=== PATIENT | female | born 1990 ===

== ENCOUNTER 2023-11-18 06:47 | Outpatient (REF) | payer OTHER, SELFPAY ==
--- NOTE | ~2023-11-18 | US_ITS ---
EXAMINATION: US SOFT TISSUE HEAD/NECK CLINICAL INFORMATION: Hypothyroidism. COMPARISON: None available. TECHNIQUE: Linear transducer grayscale and color Doppler examination of the thyroid bed and surrounding soft tissue. FINDINGS: Status post total thyroidectomy. No residual soft tissue in the thyroidectomy bed. No cervical lymphadenopathy. US/US thyroid IMPRESSION: Status post total thyroidectomy. No residual soft tissue in the thyroidectomy bed. No cervical lymphadenopathy. Electronically signed by: Orquidea Benz MD 11/27/2023 09:53 PM EDT
== END 2023-11-18 06:48 | disposition home or self-care (01) ==
LOC: HO.UMASIMG 06:47
PROVIDERS: Visit Provider Family Medicine
DX: E03.9 Hypothyroidism, unspecified (principal); F31.81 Bipolar II disorder; Z85.850 Personal history of malignant neoplasm of thyroid
CPT/HCPCS: 76536